=== PATIENT | male | born 1995 | race Caucasian/White ===

== ENCOUNTER 2024-10-18 22:58 | Emergency (ER) | payer SELFPAY ==
[~2024-10-18] VITALS: Ht 170.2 cm; Wt 82.0 kg
[2024-10-18 23:00] VITALS: O2SAT 99
[2024-10-19] MEDS: KETOROLAC 30MG/ML VIAL IV ONE
[2024-10-19] MEDS ORDERED: IBUP-2029 MT (01:19)
[2024-10-19] MEDS ORDERED: NALO4SPR BOTHNSTRLS (01:24)
[2024-10-19] MEDS: SODIUM CHLORIDE 0.9% 1,000 ML IV ONE (01:42)
[2024-10-19 02:43] VITALS: BP 107/58; PULSE 98; RESP 18; TEMP 36.8; O2SAT 99
== END 2024-10-19 02:45 | disposition home or self-care (01) ==
LOC: ER 22:58
DX: S82.891A Other fracture of right lower leg, initial encounter for closed fracture (principal); F19.10 Other psychoactive substance abuse, uncomplicated; W19.XXXA Unspecified fall, initial encounter; Y93.89 Activity, other specified; Y92.89 Other specified places as the place of occurrence of the external cause; Y99.8 Other external cause status
CPT/HCPCS: 99285; 29515; 73610; 96374; 96361; J1885; J7030